=== PATIENT | female | born 2000 | race Caucasian/White ===

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

== ENCOUNTER 2022-01-19 11:52 | Outpatient (CLI) | payer OTHER, SELFPAY ==
[2022-01-19 19:23] LABS: SARS-CoV-2 RNA PCR Negative (Negative)
== END 2022-01-19 11:53 | disposition home or self-care (01) ==
LOC: CHSLAB 11:54
PROVIDERS: PCP Family Medicine; Visit Provider Nurse Practitioner Family
DX: Z12.11 Encounter for screening for malignant neoplasm of colon (principal)
CPT/HCPCS: C9803; U0003; U0005

== ENCOUNTER 2023-03-08 11:52 | Emergency (ER) | payer OTHER, SELFPAY ==
[2023-03-08 12:08] VITALS: BP 105/62; PULSE 85; RESP 16; TEMP 36.4; O2SAT 100
--- NOTE | 2023-03-08 13:11 | ED.URI ---
HPI - URI/Sore Throat General Chief Complaint: Upper Respiratory Infection Stated Complaint: Sore Throat;Cough;Bodyache Time Seen by Provider: 03/08/23 13:10 Source: patient, RN notes reviewed and old records reviewed Mode of arrival: ambulatory Limitations: no limitations History of Present Illness HPI Narrative: 22-year-old female who presents to [facility] with complaints of cough and sore throat for about a week with right side of throat sore mainly. Patient reports sinus drainage, headache, and some nasal pressure.Patient reports that when she first started feeling bad she had something in her hand and she lost her balance and slid down 9 stairs on her bottom and has been more achy since then. Patient reports that she has had body aches and chills and is unsure if she has had any fever MD elicited complaint: cough and sore throat Onset (ago): week(s) (1) Pain scale (0-10): 4 Able to tolerate fluids by mouth: Yes Treatments prior to arrival: none Related Data Home Medications Medication Instructions Recorded Confirmed drospirenone 3 mg-ethinyl 1 tablet PO DAILY 10/22/22 03/08/23 estradiol 0.02 mg tablet Allergies Allergy/AdvReac Type Severity Reaction Status Date / Time No Known Allergies Allergy Verified 10/22/22 08:31 Review of Systems Review of Systems: CONSTITUTIONAL: Reports malaise, chills, sweats, unknown if fever. EYES: Denies visual changes, redness, or discharge. ENT: Reports rhinorrhea, congestion, sinus pain, no otalgia and positive for sore throat especially right side of throat. CARDIOVASCULAR: Denies chest pain, palpitations, or edema. RESPIRATORY: Reports cough.? Denies dyspnea. GASTROINTESTINAL: Denies abdominal pain, nausea, vomiting, diarrhea SKIN: Denies rash or itching. MUSCULOSKELETAL: Positive myalgia. NEUROLOGIC: positive for headache. All systems reviewed & are unremarkable except as noted in HPI and below PMFSH Past Medical History Medical History Generalized anxiety disorder Obsessive compulsive personality disorder Surgical History Surgical History History of tonsillectomy (~2007) Hx of adenoidectomy (~2007) Social History Social History Smoking status: Never smoker Comments At time of signature, agree with nursing past medical, surgical, social and family history. There is no relevant family history pertinent to the presenting complaint Exam Narrative: GENERAL: Well-appearing, well-nourished, and in no acute distress. HEAD: Normocephalic EYES: PERRLA, conjunctivae clear ENT: Nares clear, turbinates edematous and erythematous, clear discharge. Mucous membranes moist. TM pearly jackson with dull light reflex bilaterally; no tragal tenderness. Oropharynx erythematous without lesions. Tonsils not present and throat without exudate, no drooling, no hoarseness, no trismus, uvula midline.post nasal drainage NECK: Supple. No lymphadenopathy CHEST: Clear to auscultation, breath sounds equal. No wheezing, rhonchi, rales, or stridor. No respiratory distress, speaks in full sentences.cough, SAO2 100% on room air HEART: Regular rate and rhythm. No murmur heard. SKIN: Warm, dry, no rash. NEURO: Alert and oriented x3. PSYCH: Normal mood and affect Course Course Emergency Course: Patient is aware of diagnosis, understands and agrees to treatment plan.? Anticipatory guidance given.? Patient agrees to follow-up as directed and is aware of reasons to seek care at the emergency department. Portions of this record may have been created with voice recognition software Level of Care: Express Care Visit Vital Signs Vital signs: Vital Signs Temperature 36.4 C 03/08/23 12:08 Pulse Rate 85 03/08/23 12:08 Respiratory Rate 16 03/08/23 12:08 Blood Pressure 105/62 03/08/23 12:08 Pu
== END 2023-03-08 13:39 | disposition home or self-care (01) ==
PROVIDERS: Emergency Provider Registered Nurse; PCP Family Medicine
DX: J06.9 Acute upper respiratory infection, unspecified (principal); R05.9 Cough, unspecified; Z20.822 Contact with and (suspected) exposure to COVID-19
CPT/HCPCS: 87081; 87426; 87804; 87880; 99213; C9803; G0463

== ENCOUNTER 2023-12-30 18:19 | Outpatient (CLI) | payer OTHER, SELFPAY ==
--- NOTE | ~2023-12-30 | XR_ITS ---
EXAMINATION: XR hand RT min 3V DATE: 12/30/2023 18:38 INDICATION: Right hand muscle or fascial strain TECHNIQUE: Posteroanterior, oblique and lateral views of the right hand were obtained. COMPARISON: None. FINDINGS: 3 mm ulnar minus variance. Bone alignment is otherwise normal. No fracture. Joint spaces are normal. No erosions. Soft tissues are unremarkable. IMPRESSION: 1. 3 mm ulnar minus variance. Otherwise unremarkable right hand radiographs. Reviewed, dictated and finalized at location A.
== END 2023-12-30 18:20 | disposition home or self-care (01) ==
PROVIDERS: PCP Family Medicine; Visit Provider Family Medicine
DX: S66.811A Strain of other specified muscles, fascia and tendons at wrist and hand level, right hand, initial encounter (principal)
CPT/HCPCS: 73130

== ENCOUNTER 2025-03-29 16:20 | Emergency (ER) | payer OTHER, SELFPAY ==
[2025-03-29 16:42] VITALS: BP 111/75; PULSE 68; RESP 16; TEMP 36.5; O2SAT 100
--- NOTE | 2025-03-29 17:16 | ED_ITS ---
HPI - Eye Problem General Chief complaint: Eye Problems Stated complaint: EYE REDNESS Time Seen by Provider: 03/29/25 17:09 Source: patient and RN notes reviewed Mode of arrival: ambulatory Limitations: no limitations History of Present Illness HPI Narrative: 24-year-old female patient presents today complaining of right eye itching, redness, discomfort with some crusting this morning. Denies vision changes. No OTC treatment prior to arrival. She does not were glasses or contacts. Visual acuity was 20/30 in both eyes. Related Data Allergies Allergy/AdvReac Type Severity Reaction Status Date / Time No Known Allergies Allergy Verified 03/29/25 16:45 PMFSH Past Medical History Medical History Generalized anxiety disorder Obsessive compulsive personality disorder Surgical History Surgical History History of tonsillectomy (~2007) Hx of adenoidectomy (~2007) Social History Social History Smoking status: Never smoker Comments At time of signature, I have reviewed and agree with nursing past medical, surgical, social and family history unless otherwise noted. Please see nursing chart for further information. There is no relevant family history pertinent to the presenting complaint Exam Narrative: GENERAL: Well-appearing, well-nourished, and in no acute distress. HEAD: Normocephalic, atraumatic. EYES: EOMI. Left eye normal. Right eye: Injected conjunctiva. Moderate purulent discharge noted. Lids and lashes normal. ENT: Mucous membranes pink and moist. NECK: Normal AROM. CHEST: No respiratory distress. EXTREMITIES: Normal range of motion. No edema. SKIN: Warm, dry, no rash. Capillary refill normal. Normal skin turgor. NEURO: No focal deficits. Alert and oriented x3. Gait steady. PSYCH: Normal affect. No signs of depression or anxiety. Course Course Level of Care: Express Care Visit Vital Signs Vital signs: Vital Signs Temperature 97.7 F 03/29/25 16:42 Pulse Rate 68 03/29/25 16:42 Respiratory Rate 16 03/29/25 16:42 Blood Pressure 111/75 03/29/25 16:42 Pulse Oximetry 100 03/29/25 16:42 Temperature 97.7 F 03/29/25 16:42 Pulse Rate 68 03/29/25 16:42 Respiratory Rate 16 03/29/25 16:42 Blood Pressure 111/75 03/29/25 16:42 Pulse Oximetry 100 03/29/25 16:42 Reviewed MDM MDM Narrative Medical decision making narrative: 24-year-old female patient presents today complaining of right eye itching, redness, discomfort with some crusting this morning. Denies vision changes. No OTC treatment prior to arrival. She does not were glasses or contacts. Visual acuity was 20/30 in both eyes. Upon exam, right eye with injected conjunctiva with purulent discharge. Prescription for Polytrim sent to pharmacy. Patient agrees with plan. Vital signs stable. Anticipatory guidance given. Differential Diagnosis Differential Diagnosis: Conjunctivitis, corneal abrasion, stye, blepharitis Critical Care Time Critical Care Time Critical Care Time: No Discharge Plan Discharge Clinical Impression: Acute bacterial conjunctivitis of right eye Patient Disposition: Home Condition: Stable Instructions: Conjunctivitis (ED) Additional Instructions: Please use the eyedrops as directed. Wash your hands frequently, especially before and after use of the drops. Follow-up with your eye doctor in 3 days if symptoms are not improving. Patient Language: Tamaz[place] Prescriptions: New polymyxin B sulf-trimethoprim 10,000 unit- 1 mg/mL drops 1 drp RIGHT EYE QID 7 Days Qty: 10 0RF Follow-up/Referrals: Anand Palacios DO [Primary Care Provider, [facility]] Time of Disposition: 17:20
== END 2025-03-29 17:25 | disposition home or self-care (01) ==
PROVIDERS: Emergency Provider Nurse Practitioner; PCP Family Medicine
DX: H10.31 Unspecified acute conjunctivitis, right eye (principal)
CPT/HCPCS: 99213; G0463